=== PATIENT | female | born 1935 | race Caucasian/White ===

== ENCOUNTER 2020-05-13 17:48 | Emergency (ER) | payer MEDICARE, BC ==
[2020-05-13 17:50] VITALS: TEMP 97.4
[2020-05-13] MEDS ORDERED: LUTEIN20 M1 PO (18:17)
[2020-05-13] MEDS ORDERED: CALCIUM CARBON650 M2 (18:18)
[2020-05-13] MEDS ORDERED: VITAMIN D31000 I1 PO (18:18)
[2020-05-13 18:43] VITALS: BP 136/66; PULSE 68
[2020-05-13 18:54] LABS: INR 1.1 (0.8-3.0); PROTHROMBIN TIME 12.5 SECONDS (9.7-12.8)
[2020-05-13 18:57] LABS: PARTIAL THROMBOPLASTIN TIME 26.4 SECONDS (26.0-37.0)
[2020-05-13 19:06] LABS: ALBUMIN 3.3 gm/dL (3.5-5.0); BILIRUBIN,TOTAL 0.5 mg/dL (0.0-1.0); CALCIUM 8.2 mg/dL (8.4-10.2); CREATININE, serum 0.7 (0.52-1.25); POTASSIUM 3.7 mmol/L (3.4-5.0); TOTAL PROTEIN 5.9 gm/dL (6.4-8.2)
[2020-05-13 19:17] LABS: TROPONIN-I 0.027 ng/mL (0.000-0.035)
== END 2020-05-13 19:20 | disposition short-term general hospital (02) ==
LOC: COL.ER 17:48
PROVIDERS: Family Medicine
DX: I21.19 ST elevation (STEMI) myocardial infarction involving other coronary artery of inferior wall (principal)
CPT/HCPCS: J1644; J3101

== ENCOUNTER 2020-06-11 11:00 | Day surgery (SDC) | payer MEDICARE, BC ==
[~2020-06-11] VITALS: Ht 160 cm; Wt 71.6 kg
[2020-06-11] VITALS (150 sets, daily range): BP systolic 117–151; BP diastolic 43–61; PULSE 50–63; TEMP 97.2–98.1; O2SAT 92–98
[~2020-06-11 11:00] MED LIST: CALCIUM CARBON650 M2; LUTEIN20 M1 PO; VITAMIN D31000 I1 PO
[2020-06-11 12:45] LABS: HEMOGLOBIN 11.8 g/dl (12.5-16.0); MEAN CELL VOLUME 92 fl (80.0-100.0); MEAN CORPUSCULAR HEMOGLOBIN 31 pg (27.0-31.0); MEAN CORPUSCULAR HGB CONC 33 g/dl (33.0-37.0); MEAN PLATELET VOLUME 9.7 fl (7.4-10.4); PLATELET COUNT 178 K/mm3 (130-400); RED BLOOD COUNT 3.85 M/mm3 (4.10-5.30); REDCELL DISTRIBUTION WIDTH-CV 13.9 % (11.5-14.5)
[2020-06-11 12:46] LABS: HEMATOCRIT 35.4 % (37.0-47.0)
[2020-06-11] MEDS ORDERED: ASPIRIN E.C. 8181 MG PO (12:50)
[2020-06-11] MEDS ORDERED: PLAVIX 75MG TAB75 MG PO (12:51)
[2020-06-11] MEDS ORDERED: LIPITOR 40MG TA40 MG PO (12:51)
[2020-06-11] MEDS ORDERED: PEPCID 20MG TAB20 MG PO (12:52)
[2020-06-11] MEDS ORDERED: PRINIVIL5 MG PO (12:53)
[2020-06-11] MEDS ORDERED: LOPRESSOR 225 MG/TAB PO (12:54)
[2020-06-11 12:56] LABS: CALCIUM 8.8 mg/dL (8.4-10.2); CREATININE, serum 0.61 (0.52-1.25); POTASSIUM 3.9 mmol/L (3.4-5.0)
[2020-06-11 13:10] LABS: INR 1.3 (0.8-3.0); PROTHROMBIN TIME 14.1 SECONDS (9.7-12.8)
--- NOTE | 2020-06-11 13:11 | NUR ---
SEE MERGE DOCUMENTATION FOR MEDICATION ADMINISTRATION AND INTRA/POST PROCEDURE SEDATION ASSESSMENTS.
--- NOTE | 2020-06-11 16:45 | NUR ---
pt removes TR band d/t "it was hurting me" no bleeding, insertion site soft c brusing, 2x2 placed/pressure held x 1min, covered with tegaderm. No additional interventions required.
--- NOTE | 2020-06-11 18:00 | NUR ---
Pt sitting up in chair, supper ordered. Right radial site remains CDI. Denies CP or SOA. Sinus Miguel c occasional PVC. BP 130-140/48-50s
[2020-06-12] VITALS (441 sets, daily range): BP systolic 121–139; BP diastolic 46–58; PULSE 50–58; TEMP 97.8–98.2; O2SAT 90–98
[2020-06-12 06:22] LABS: HEMOGLOBIN 12.2 g/dl (12.5-16.0); MEAN CELL VOLUME 92 fl (80.0-100.0); MEAN CORPUSCULAR HEMOGLOBIN 31 pg (27.0-31.0); MEAN CORPUSCULAR HGB CONC 33 g/dl (33.0-37.0); MEAN PLATELET VOLUME 9.7 fl (7.4-10.4); PLATELET COUNT 160 K/mm3 (130-400); RED BLOOD COUNT 3.99 M/mm3 (4.10-5.30); REDCELL DISTRIBUTION WIDTH-CV 14.1 % (11.5-14.5)
[2020-06-12 06:32] LABS: CALCIUM 8.3 mg/dL (8.4-10.2); CREATININE, serum 0.72 (0.52-1.25)
[2020-06-12 07:23] LABS: HEMATOCRIT 36.8 % (37.0-47.0)
[2020-06-12 07:34] LABS: BASO % 0.5 % (0.0-2.0); GRAN # 4.5 (1.4-6.5); GRAN % 72.6 % (42.2-75.2); LYMPH % 16.4 % (20.0-51.0); MONO % 8.3 % (1.7-9.3)
[2020-06-12 07:35] LABS: EOS # 0.1 (0.0-0.7); MONO # 0.5 (0.1-0.6)
--- NOTE | 2020-06-12 12:53 | NUR ---
First visit from the presentation specialist. No needs right now.
--- NOTE | 2020-06-12 15:31 | NUR ---
PT DISCHARGED TO HOME. ALL DISCHARGE INSTURCTIONS, FOLLOW UPS, EDUCATION AND STENT INFORMATION SENT HOME WITH PT AND REVIEWED, DENIES FURTHER NEEDS. IV SITE TO LEFT HAND REMOVED, WITHOUT COMPICATIONS. DRESSING TO RIGHT RADIAL REMOVED AND BANDAID APPLIED, NO BLEEDING NOTED. BRUSING NOTED TO SITE BUT SOFT WITHOUT HEMATOMA. PT ASSISTED TO FAMILY CAR VIA WHEELCHAIR WITH STAFF. ALL BELONGINGS SENT WITH PT AT TIME OF DISCHARGE. NO PRESCRIPTIONS NEEDED AT THIS TIME.
== END 2020-06-12 15:30 | disposition home or self-care (01) ==
LOC: COL.CAR 11:00 → ICU 18:24 → EU 06-12 10:08 → ICU 06-12 10:08 → COL.CAR 06-12 15:30
PROVIDERS: Internal Medicine Cardiovascular Disease
DX: I25.10 Atherosclerotic heart disease of native coronary artery without angina pectoris (principal); R00.1 Bradycardia, unspecified; E78.1 Pure hyperglyceridemia; Z20.828 Contact with and (suspected) exposure to other viral communicable diseases; Z88.1 Allergy status to other antibiotic agents; Z88.0 Allergy status to penicillin; Z79.82 Long term (current) use of aspirin; Z79.02 Long term (current) use of antithrombotics/antiplatelets; Z79.899 Other long term (current) drug therapy; Z98.61 Coronary angioplasty status
CPT/HCPCS: OP; C9600; J1644; J2250; J3010; Q9967

== ENCOUNTER 2020-10-14 15:04 | Outpatient (RCR) | payer MEDICARE, BC ==
[~2020-10-14 15:04] MED LIST changes: +ASPIRIN E.C. 8181 MG PO; +LIPITOR 40MG TA40 MG PO; +LOPRESSOR 225 MG/TAB PO; +PEPCID 20MG TAB20 MG PO; +PLAVIX 75MG TAB75 MG PO; +PRINIVIL5 MG PO
== END 2020-10-15 | disposition home or self-care (01) ==
LOC: COL.CR
DX: Z48.812 Encounter for surgical aftercare following surgery on the circulatory system (principal); Z95.5 Presence of coronary angioplasty implant and graft

== ENCOUNTER 2020-10-28 15:24 | Outpatient (RCR) | payer MEDICARE, BC | END 2020-11-04 05:53 | disposition home or self-care (01) | LOC: COL.CR | DX: Z48.812 Encounter for surgical aftercare following surgery on the circulatory system (principal); Z95.5 Presence of coronary angioplasty implant and graft ==

== ENCOUNTER 2022-03-09 15:12 | Emergency (ER) | payer MEDICARE, BC ==
[~2022-03-09] VITALS: Ht 157.5 cm; Wt 60.0 kg
[2022-03-09 15:39] VITALS: BP 161/70; TEMP 97.9
[2022-03-09 17:10] VITALS: PULSE 68
== END 2022-03-09 17:12 | disposition home or self-care (01) ==
LOC: COL.ER 15:12
DX: Z20.3 Contact with and (suspected) exposure to rabies (principal); Z23 Encounter for immunization

== ENCOUNTER 2022-03-09 16:13 | Outpatient (RCR) | payer MEDICARE, BC ==
[~2022-03-09] VITALS: Ht 157.5 cm; Wt 60.7 kg
[2022-03-12 16:29] VITALS: BP 137/46; PULSE 52; TEMP 97.9
[2022-03-16 10:20] VITALS: BP 92/56; PULSE 54; TEMP 98.1
--- NOTE | 2022-03-16 12:11 | NUR ---
Escorted pt and her granddaughter to exit, pt tolerated rabies vax without complication. Next appt made.
== END 2022-03-17 ==
LOC: EUO
DX: Z23 Encounter for immunization (principal); I10 Essential (primary) hypertension; E78.00 Pure hypercholesterolemia, unspecified; I25.10 Atherosclerotic heart disease of native coronary artery without angina pectoris

== ENCOUNTER 2022-03-23 16:42 | Outpatient (RCR) | payer MEDICARE, BC ==
[~2022-03-23] VITALS: Ht 157.5 cm; Wt 60.7 kg
[2022-03-23 16:19] VITALS: BP 131/44; PULSE 61; TEMP 98.7
== END 2022-03-23 17:03 | disposition home or self-care (01) ==
LOC: EUO 16:42
DX: Z23 Encounter for immunization (principal)

== ENCOUNTER → 2024-02-14 | Outpatient (CLI) | payer MEDICARE, BC ==
[~2024-02-14] MED LIST changes: +Iohexol 300 - 100 ML VIAL IV ONE; +NS 100 ML IV SCH
== END ==
LOC: COL.RAD 13:42
DX: N28.1 Cyst of kidney, acquired (principal); R93.89 Abnormal findings on diagnostic imaging of other specified body structures
CPT/HCPCS: Q9967